=== PATIENT | male | born 1975 | race Caucasian/White ===

== ENCOUNTER → 2019-03-01 | Outpatient (CLI) | payer BC | END | disposition home or self-care (01) | LOC: HKI 15:51 | DX: M25.552 Pain in left hip (principal); Z96.642 Presence of left artificial hip joint; Z79.82 Long term (current) use of aspirin | CPT/HCPCS: 73502 ==

== ENCOUNTER → 2019-03-11 | Outpatient (CLI) | payer BC | END | disposition home or self-care (01) | LOC: NUC 08:53 | DX: M25.552 Pain in left hip (principal) | CPT/HCPCS: 78315; A9503 ==

== ENCOUNTER → 2019-03-22 | Outpatient (CLI) | payer BC | END | disposition home or self-care (01) | LOC: HKI 13:46 | DX: Z47.1 Aftercare following joint replacement surgery (principal); Z96.642 Presence of left artificial hip joint | CPT/HCPCS: 73502 ==

== ENCOUNTER → 2019-04-19 | Outpatient (CLI) | payer BC | END | disposition home or self-care (01) | LOC: HKI 13:13 | DX: Z01.818 Encounter for other preprocedural examination (principal); T84.031A Mechanical loosening of internal left hip prosthetic joint, initial encounter; Y83.8 Other surgical procedures as the cause of abnormal reaction of the patient, or of later complication, without mention of misadventure at the time of the procedure | CPT/HCPCS: G0463 ==

== ENCOUNTER → 2019-05-17 | Outpatient (CLI) | payer BC | END | disposition home or self-care (01) | LOC: HKI 11:23 | DX: Z01.818 Encounter for other preprocedural examination (principal) | CPT/HCPCS: G0463 ==

== ENCOUNTER 2019-05-18 05:32 | Inpatient (IN) | payer BC ==
[~2019-05-18 05:32] MED LIST: ACETAMINOPHEN 500 MG TAB PO; CEFAZOLIN 2 GM/50 ML (PMX) 50 ML IVPB; CELECOXIB 200 MG CAP PO; GABAPENTIN 300 MG CAP PO; LACTATED RINGER'S 1,000 ML IV; LANSOPRAZOLE 30 MG CAP PO; ONDANSETRON 4 MG INJ IV; TRANEXAMIC ACID 1GM/100ML(PMX) 100 ML AT CLOSING IVPB; TRANEXAMIC ACID 1GM/100ML(PMX) 100 ML PRE-OP IVPB
[2019-05-18] MEDS: CEFAZOLIN 2 GM/50 ML (PMX) 50 ML IVPB ×3 (06:00→20:31)
[2019-05-18] MEDS: TRANEXAMIC ACID 1GM/100ML(PMX) 100 ML PRE-OP IVPB (06:00)
[2019-05-18] MEDS: ACETAMINOPHEN 500 MG TAB PO ×3 (06:36→22:00)
[2019-05-18] MEDS: ONDANSETRON 4 MG INJ IV ×3 (06:36→19:26)
[2019-05-18] MEDS: LANSOPRAZOLE 30 MG CAP PO (06:37)
[2019-05-18] MEDS: LACTATED RINGER'S 1,000 ML IV ×2 (06:37→14:09)
[2019-05-18] MEDS: GABAPENTIN 300 MG CAP PO ×2 (06:37→20:31)
[2019-05-18] MEDS: CELECOXIB 200 MG CAP PO (06:37)
[2019-05-18] MEDS ORDERED: DESFLURANE 15 MIN (07:00)
[2019-05-18] MEDS ORDERED: LIDOCAINE 1% (MDV) 20 ML INJ (07:36)
[2019-05-18] MEDS ORDERED: FENTAnyl 50 MCG/ML VIAL (07:36)
[2019-05-18] MEDS ORDERED: GLYCOPYRROLATE 0.4 MG INJ (07:36)
[2019-05-18] MEDS ORDERED: PROPOFOL 20 ML (07:36)
[2019-05-18] MEDS ORDERED: MIDAZOLAM 1 MG/ML 2 ML INJ (07:36)
[2019-05-18] MEDS ORDERED: HYDROmorphONE 1 MG/5 ML IV SYRINGE IV ×6 (08:00→13:30)
[2019-05-18] MEDS ORDERED: DEXAMETHASONE 4 MG/ML 5 ML INJ (08:27)
[2019-05-18] MEDS ORDERED: ROCURONIUM 50 MG INJ ×3 (08:28→10:55)
[2019-05-18] MEDS: TRANEXAMIC ACID 1GM/100ML(PMX) 100 ML ×2 (08:30→09:47)
[2019-05-18] MEDS: TRANEXAMIC ACID 1GM/100ML(PMX) 100 ML AT CLOSING IVPB ×3 (09:48→12:29)
[2019-05-18 10:01] LABS: SYN FLD MN % 56.7 &; SYN FLD PMN % 43.3 % (0.0-25.0); SYN FLD WBC 1147 /cmm (0-150)
[2019-05-18 10:14] LABS: SYN FLD CLARITY CLOUDY; SYN FLD COLOR RED
[2019-05-18 10:14] LABS: SYN FLD SOURCE HIP FLUID
[2019-05-18 10:15] LABS: SYN FLD CRYSTALS NO CRYSTALS SEEN (None seen)
[2019-05-18] MEDS: TOBRAMYCIN 1.2 GM POWDER (10:44)
[2019-05-18] MEDS: VANCOMYCIN 1 GM INJ (10:52)
[2019-05-18] MEDS ORDERED: CEFAZOLIN 1 GM INJ (10:56)
[2019-05-18] MEDS ORDERED: ONDANSETRON 4 MG INJ (12:35)
[2019-05-18] MEDS ORDERED: ROPIVACAINE 0.5 % 30 ML VIAL (12:40)
[2019-05-18] MEDS ORDERED: ROPIVACAINE 0.2% 20 ML VIAL (12:43)
[2019-05-18] MEDS ORDERED: SUGAMMADEX SODIUM 200 MG/2 ML VIAL IV (12:56)
[2019-05-18] MEDS ORDERED: NA PHOSPHATE/BIPHOS 133 ML ENEMA PR (13:00)
[2019-05-18] MEDS ORDERED: NACL 0.9% 3 ML SYG IV (13:00)
[2019-05-18] MEDS ORDERED: oxyCODONE 5 MG TAB PO (13:00)
[2019-05-18] MEDS ORDERED: BISACODYL 10 MG SUPP PR (13:00)
[2019-05-18] MEDS ORDERED: NALOXONE (0.4 MG/ML) INJ IV (13:00)
[2019-05-18] MEDS ORDERED: MAGNESIUM HYDROXIDE 30ML CUP PO (13:00)
[2019-05-18] MEDS ORDERED: DIPHENHYDRAMINE 50 MG INJ IV (13:00)
[2019-05-18] MEDS ORDERED: SENNA/DOCUSATE NA (8.6MG/50MG) TAB PO (13:00)
[2019-05-18] MEDS ORDERED: FENTAnyl 50 MCG/ML VIAL IV ×3 (13:30)
[2019-05-18] MEDS ORDERED: OXYCODONE/ACETAMINOPHEN (5/325) TAB PO ×2 (13:30)
[2019-05-18] MEDS: HYDROmorphONE 1 MG/5 ML IV SYRINGE IV ×3 (14:01→14:19)
[2019-05-18] MEDS: DOCUSATE SODIUM 100 MG CAP PO (14:06)
[2019-05-18] MEDS: HYDROmorphONE 1 MG/ML SYG IV ×3 (16:47→22:55)
[2019-05-18] MEDS: oxyCODONE 5 MG TAB PO ×2 (18:11→22:11)
[2019-05-19] MEDS: oxyCODONE 5 MG TAB PO ×5 (02:08→21:27)
[2019-05-19] MEDS: LACTATED RINGER'S 1,000 ML IV (02:11)
[2019-05-19] MEDS: HYDROmorphONE 1 MG/ML SYG IV ×3 (04:58→13:39)
[2019-05-19 05:10] LABS: ADD MAN DIFF? NO
[2019-05-19 05:18] LABS: BASOPHILS % 0.1 % (0.0-2.0); EOSINOPHILS % 0.4 % (0.0-7.0); HEMATOCRIT 27.4 % (42.0-52.0); HEMOGLOBIN 9.5 g/dl (14.0-18.0); LYMPHOCYTES # 1.3 10^3/ul (0.8-2.9); LYMPHOCYTES % 16.3 % (15.0-51.0); MEAN CORPUSCULAR HEMOGLOBIN 30.5 pg (29.0-33.0); MEAN CORPUSCULAR HGB CONC 34.7 g/dl (32.0-37.0); MEAN CORPUSCULAR VOLUME 88.1 fl (82.0-101.0); MEAN PLATELET VOLUME 12.1 fl (7.4-10.4); MONOCYTE # 0.9 10^3/ul (0.3-0.9); MONOCYTES % 11.5 % (0.0-11.0); NEUTROPHIL # 5.7 10^3/ul (1.6-7.5); NEUTROPHILS % 71.3 % (39.0-77.0); PLATELET COUNT 157 10^3/UL (140-415); RED BLOOD COUNT 3.11 10^6/ul (4.70-6.10); RED CELL DISTRIBUTION WIDTH 13.2 % (11.5-14.5)
[2019-05-19 05:37] LABS: INR 1.02; PROTIME 13.5 Sec (11.9-14.9); PT RATIO 1.1
[2019-05-19] MEDS: PANTOPRAZOLE (EC) 40 MG TAB PO (05:56)
[2019-05-19] MEDS: ACETAMINOPHEN 500 MG TAB PO ×3 (05:56→22:31)
[2019-05-19] MEDS: BETHANECHOL 25 MG TAB PO (05:57)
[2019-05-19] MEDS: CEFAZOLIN 2 GM/50 ML (PMX) 50 ML IVPB (05:57)
[2019-05-19 06:03] LABS: ANION GAP 5 (5-13); BLOOD UREA NITROGEN 16 mg/dl (7-20); CALCIUM 8.7 mg/dl (8.4-10.2); CARBON DIOXIDE 28 mmol/L (21-31); CHLORIDE 103 mmol/L (97-110); CREATININE 0.98 mg/dl (0.61-1.24); Estimated GFR > 60 mL/min (>60); GLUCOSE 101 mg/dl (70-220); POTASSIUM 4.2 mmol/L (3.5-5.1); SODIUM 136 mmol/L (135-144)
[2019-05-19 06:37] LABS: ADD UMIC NO; UR ASCORBIC ACID NEGATIVE (NEGATIVE); UR BILIRUBIN (Dip) NEGATIVE (NEGATIVE); UR BLOOD (Dip) NEGATIVE (NEGATIVE); UR CLARITY CLEAR (CLEAR); UR COLOR YELLOW (YELLOW); UR GLUCOSE (Dip) NEGATIVE (NEGATIVE); UR KETONES (Dip) NEGATIVE (NEGATIVE); UR LEUKOCYTE ESTERASE (Dip) NEGATIVE Leu/ul (NEGATIVE); UR NITRITE (Dip) NEGATIVE (NEGATIVE); UR TOTAL PROTEIN (Dip) NEGATIVE (NEGATIVE); UR UROBILINOGEN (Dip) NEGATIVE (NEGATIVE)
[2019-05-19] MEDS: ASPIRIN (EC) 81 MG TAB PO ×2 (08:07→20:37)
[2019-05-19] MEDS: DOCUSATE SODIUM 100 MG CAP PO ×2 (08:07→20:37)
[2019-05-19] MEDS: LAMOTRIGINE 100 MG TAB PO (08:08)
[2019-05-19] MEDS: ONDANSETRON 4 MG INJ IV (08:39)
[2019-05-19] MEDS ORDERED: ONDANSETRON 4 MG INJ IV (13:00)
[2019-05-19] MEDS: GABAPENTIN 300 MG CAP PO (20:37)
[2019-05-19] MEDS: ZOLPIDEM 5 MG TAB PO (22:31)
[2019-05-20] MEDS: oxyCODONE 5 MG TAB PO ×4 (02:06→14:14)
[2019-05-20 05:59] LABS: WHITE BLOOD COUNT 5.6 10^3/ul (4.8-10.8)
[2019-05-20 05:59] LABS: ADD MAN DIFF? NO; BASOPHILS % 0.2 % (0.0-2.0); EOSINOPHILS % 0.7 % (0.0-7.0); HEMATOCRIT 25.7 % (42.0-52.0); HEMOGLOBIN 8.9 g/dl (14.0-18.0); LYMPHOCYTES # 1.3 10^3/ul (0.8-2.9); LYMPHOCYTES % 23.2 % (15.0-51.0); MEAN CORPUSCULAR HEMOGLOBIN 31.2 pg (29.0-33.0); MEAN CORPUSCULAR HGB CONC 34.6 g/dl (32.0-37.0); MEAN CORPUSCULAR VOLUME 90.2 fl (82.0-101.0); MEAN PLATELET VOLUME 12.7 fl (7.4-10.4); MONOCYTE # 0.5 10^3/ul (0.3-0.9); MONOCYTES % 9.4 % (0.0-11.0); NEUTROPHIL # 3.7 10^3/ul (1.6-7.5); NEUTROPHILS % 66.1 % (39.0-77.0); PLATELET COUNT 134 10^3/UL (140-415); RED BLOOD COUNT 2.85 10^6/ul (4.70-6.10); RED CELL DISTRIBUTION WIDTH 13.5 % (11.5-14.5)
[2019-05-20] MEDS: PANTOPRAZOLE (EC) 40 MG TAB PO (06:22)
[2019-05-20] MEDS: ACETAMINOPHEN 500 MG TAB PO ×2 (06:23→14:00)
[2019-05-20 06:31] LABS: INR 0.97
[2019-05-20 06:55] LABS: ANION GAP 6 (5-13); BLOOD UREA NITROGEN 20 mg/dl (7-20); CALCIUM 8.6 mg/dl (8.4-10.2); CARBON DIOXIDE 30 mmol/L (21-31); CHLORIDE 103 mmol/L (97-110); CREATININE 1.07 mg/dl (0.61-1.24); Estimated GFR > 60 mL/min (>60); GLUCOSE 84 mg/dl (70-220); SODIUM 139 mmol/L (135-144)
[2019-05-20] MEDS: DOCUSATE SODIUM 100 MG CAP PO (09:06)
[2019-05-20] MEDS: LAMOTRIGINE 100 MG TAB PO (09:06)
[2019-05-20] MEDS: ASPIRIN (EC) 81 MG TAB PO (09:06)
== END 2019-05-20 15:30 | disposition home health service (06) | DRG 467 ==
LOC: REC 05:32 → MS1 14:44
PROVIDERS: Orthopaedic Surgery Adult Reconstructive Orthopaedic Surgery
PROC: 0SRB0JZ Replacement of Left Hip Joint with Synthetic Substitute, Open Approach (ICD-10-PCS; principal; 2019-05-18 07:30)
PROC: 0SPB0JZ Removal of Synthetic Substitute from Left Hip Joint, Open Approach (ICD-10-PCS; 2019-05-18 07:30)
DX: T84.031A Mechanical loosening of internal left hip prosthetic joint, initial encounter (principal); F31.81 Bipolar II disorder; K64.9 Unspecified hemorrhoids; G47.00 Insomnia, unspecified
CPT/HCPCS: 72170; 73500; 80048; 81003; 85025; 85610; 86850; 86900; 86901; 86920; 87070; 87075; 87081; 87086; 87102; 88300; 89060; 97110; 97116; 97162; 97165; 97530